=== PATIENT | female | born 1955 | race Caucasian/White ===

== ENCOUNTER → 2023-05-31 | Outpatient (CLI) | payer OTHER | END | disposition home or self-care (01) | LOC: SHCH 07:58 | PROVIDERS: ATTEND Internal Medicine Cardiovascular Disease | DX: I11.9 Hypertensive heart disease without heart failure (principal); R94.31 Abnormal electrocardiogram [ECG] [EKG]; R07.9 Chest pain, unspecified; R06.09 Other forms of dyspnea | CPT/HCPCS: 93306 ==

== ENCOUNTER → 2023-06-15 | Outpatient (CLI) | payer OTHER | END | disposition home or self-care (01) | LOC: SHCH 07:59 | PROVIDERS: ATTEND Internal Medicine Cardiovascular Disease | DX: I87.2 Venous insufficiency (chronic) (peripheral) (principal); I87.1 Compression of vein | CPT/HCPCS: 93970 ==

== ENCOUNTER → 2023-06-18 | Outpatient (CLI) | payer OTHER ==
[2023-06-18] MEDS: REGADENOSON 0.4 MG/5 ML PF SYG IVP ONE (11:21)
== END | disposition home or self-care (01) ==
LOC: SHCH 08:01
PROVIDERS: ATTEND Internal Medicine Cardiovascular Disease
DX: R94.31 Abnormal electrocardiogram [ECG] [EKG] (principal)
CPT/HCPCS: 78452; 96374; 93017; J2785; A9500 ×2

== ENCOUNTER 2024-01-03 17:06 | Emergency (ER) | payer OTHER ==
[~2024-01-03] VITALS: Ht 162.6 cm; Wt 93.0 kg
--- NOTE | 2024-01-03 17:38 | ERN ---
ED Note History of Present Illness Stated Complaint: LEFT INDEX FINGER LACERATION Chief Complaint: Finger Injury Time Seen by MD: 17:20 Time Seen by Midlevel: 17:20 Dictation: The patient is a 68-year-old. With a history of CKD [facility] of left index finger laceration is for 4x2 shelf fell on her finger onset 4:00 p.m.. Denies any other injuries. Possibly last tetanus vaccine 2017. Allergies: Coded Allergies: sulfamethoxazole (Unverified Allergy, Unknown, RASH, 01/03/24) trimethoprim (Unverified Allergy, Unknown, RASH, 01/03/24) Past Medical History Past Medical History: Kidney Infection Additional Past Medical Hx: CKD Surgical History: Other Surgical History Other: LT MASTECTOMY, RECONSTRUCTION RN Note Reviewed/Agreed w/PFSH: Yes Review of System Dictation Constitutional: Negative for fever,chills, and weight loss Eyes: Negative for injury, pain,redness, and discharge ENT: Negative for injury,pain or swelling Cardiovascular: Negative for chest pain, palpitations, and edema Respiratory: Negative for shortness of breath, cough, and wheezing, Abdomen/GI: Negative for abdominal pain, nausea, vomiting, diarrhea, and constipation Back: Negative for injury and pain : Negative for injury, bleeding and discharge MS/Extremity: Negative for injury and deformity Skin: Negative for rash, and discoloration positive laceration Neuro: Negative for headache, weakness, numbness, tingling, and seizure Psych: Negative for suicide ideation, homicidal ideation, and hallucinations Initial Vital Sign VS Vital Signs Date Time Temp Pulse Resp B/P (MAP) Pulse Ox O2 Delivery O2 Flow Rate FiO2 01/03/24 17:15 99.0 90 16 163/83 97 Room Air 0 Physical Exam Dictation Vital Signs reviewed General Appearance: Alert, oriented x 3, no acute distress, well developed, nourished. Head and Face: non-traumatic. Eyes: PERRL, pink conjunctivas, eyelid no trauma, anterior chamber with arcus senilis. Ears: Pinnas intact and no signs of trauma or erythema ear canals clear and no discharge TM no erythema Nose: No discharge, no bleeding. Oropharynx: Mouth normal, tongue pink. pharynx clear,no erythema, tonsils no exudates, no abscesses noted, mucous membrane moist Neck: Supple, non-tender, no thyromegaly, no masses, no JVD, no bruits Breast:Deferred Chest:No tenderness, no crepitus, no paradoxical movement, no retractions Lungs:Clear, well-ventilated, symmetric, no rales, no wheezing, no rhonchi, no stridor, good breath sounds bilaterally Heart: Regular rate, regular rhythm, no murmur, no gallops Vascular: no peripheral edema, Abdomen: Soft, positive bowel sounds, nondistended, no guarding, nontender, no rebound, no masses no hepatomegaly, no splenomegaly, no Roca's sign, no hernias. Rectal: Deferred Genital: Deferred Neurological: Normal speech, motor function intact, sensory function intact Musculoskeletal: Neck nontender, full range of motion, back nontender, full range of motion, Extremities: nontender, full range of motion Skin: Color pink, dry, no turgor, no rash, no abrasions, no contusions. laceration to left 1st anterior mid finger 2.5in, extensor tendon intact, cap refill less than 2 sec, full rom. Lymphatic: Deferred Results (Laboratory/Radiology) Laboratory/Radiology REASON: injury ORDERING PHYSICIAN: SAMMI MARTIN [employer] PROCEDURE: FINGER LT - FINGER(S) 2+VWS LT FINGER(S) 2+VWS LT REASON: injury TECHNIQUE: 2 views were obtained. FINDINGS: There is no evidence of fracture or dislocation. There is no joint effusion. The soft tissues appear unremarkable. There is no evidence of a radiopaque foreign body. IMPRESSION: No acute findings. Labs Reviewed?: Yes ED Course ED Course Orders Procedure Category Date Status Time Finger(S) 2+Vws Lt RAD 01/03/24 Resulted 17:34 Diph,Pertuss(Acell),Tet PHA 01/03/24 Complete Vac/Pf (Tdap) 18:00 Acetaminophen 500mg PHA 01/03/24 Complete Tab (Tylenol 500mg T 18:00 Lidocaine Hcl 1% 20ml PHA 01/03/24 In Process Vial (Lidocaine Hc 18:00 Neomy PHA 01/03/24 Complete Sulf/Bacitra/Polymyxin 18:00 Laceration Tray Set CPOE 01/03/24 Transmitted Up (Er) 18:47 Wound Care (Er) CPOE 01/03/24 Transmitted 18:47 Cefazolin Sodium PHA 01/03/24 Complete (Ancef) 19:57 Current Medications Medications (Trade) Dose Ordered Sig/Jaylin Route PRN Reason Start Time Stop Time Status Last Admin Dose Admin Acetaminophen (TYLenol 500MG TAB) 1,000 mg ONCE ONCE PO 01/03/24 18:00 01/03/24 18:01 DC Cefazolin Sodium (Ancef) 2 gm ONCE STAT IVPB 01/03/24 19:57 01/03/24 19:58 DC Diphtheria/ Tetanus/Acell Pertussis (Tdap) 0.5 ml ONCE ONCE IM 01/03/24 18:00 01/03/24 18:01 DC Lidocaine HCl (Lidocaine HCl 1% 20ml Vial) 10 ml ONCE INJ 01/03/24 18:00 02/02/24 17:59 Neomycin/ Polymyxin/ Bacitracin (Triple Antibiotic Ointment) 1 appl ONCE ONCE TP 01/03/24 18:00 01/03/24 18:01 DC Vital Signs Date Time Temp Pulse Resp B/P (MAP) Pulse Ox O2 Delivery O2 Flow Rate FiO2 01/03/24 17:15 99.0 90 16 163/83 97 Room Air 0 Medical Decision Making MDM The patient is a 68-year-old. With a history of CKD who presents to the emergency department with complaints of left index finger laceration is for 4x2 shelf fell on her finger onset 4:00 p.m.. Denies any other injuries. Possibly last tetanus vaccine 2017. Differential diagnosis: Cellulitis, laceration, open phalanges fracture, Xray showed no acute fractures, laceration repair done by Arash BELLE. Patient tolerated procedure well. Need for hospitalization: Patient does not meet criteria for hospitalization. There are no social concerns with this patient. Procedure Procedure Dictation: Time and Date Performed: 12/24/2023 INDICATION: laceration Location: left digit Informed consent was obtained. Pre-procedure time out was obtained. Anesthetic:1 % lidocaine Manual prep of skin and wound was done with hibisabella. Foreign Body: NO foreign bodies were identified. Length Repaired:2.5 in Suture used:5 ethylon # of simple sutures: 12 Aseptic technique was used during the entire procedure. Wound Location: upper extremity Wound's Depth, Shape: flap Wound Explored: clean Betadine Prep?: Yes Anesthesia: 1% Lidocaine Volume Anesthetic (ccs): 10 Wound Debrided: minimal Wound Repaired With: sutures Suture Size/Type: 5:0, nylon Number of Sutures: 12 DX & DISP Disposition: Discharge Departure Impression: Primary Impression: Laceration of left index finger Condition: Stable Scripts Cephalexin Monohydrate (Keflex) 500 Mg Cap 500 MG PO QID for 7 Days, #28 CAP Prov: SAMMI MARTIN GUME 01/03/24 Additional Instructions: Keep your stitches clean and dry. Do not put your stitches under water, such as in a bath, pool, or tejada. This can slow healing and raise your chance of getting an infection. Avoid activities or sports that could hurt the area of your stitches for 1-2 weeks. You should call your doctor if you develop any fever, redness or swelling around the cut, or pus draining from the cut. Your sutures will need to be removed in 10-14 days. FOLLOW-UP WITH PRIMARY CARE PROVIDER IN 1 TO 2 DAYS. TAKE MEDICATIONS DIRECTED HERE IN THE EMERGENCY ROOM. OKAY TO CONTINUE HOME MEDICATIONS UNLESS OTHERWISE DISCUSSED DURING YOUR VISIT IN THE EMERGENCY ROOM TODAY. RETURN TO YOUR NEAREST EMERGENCY ROOM IF SYMPTOMS WORSEN OR IF THERE IS NO IMPROVEMENT. CALL 911 IF YOU NEED IMMEDIATE ASSISTANCE. TAKE TYLENOL OR MOTRIN [id number] NEEDED AND IF NO CONTRAINDICATIONS ARE PRESENT. INCREASE ORAL HYDRATION. A WOUND CULTURE OR URINE CULTURE WAS ORDERED HERE IN THE EMERGENCY ROOM DEPARTMENT PLEASE FOLLOW-UP WITH PRIMARY CARE PROVIDER AND ADVISE THEM TO GET REPEAT PORTS FROM OUR FACILITY. IF YOU HAD ANY CHELSEA WRAP/SPLINTS THAT WERE APPLIED HERE, PLEASE DO NOT REMOVE THEM UNTIL YOU SEE YOUR PRIMARY CARE OR SPECIALTY. Referrals: TIFFANY LANCASTER MD (PCP) Time of Disposition: 20:37 I have reviewed the case, and I agree with, Diagnosis and Plan SAMMI MARTIN GUME Jan 03, 2024 17:38
[2024-01-03] MEDS: NEOMY SULF/BACITRA/POLYMYXIN B 1 EACH PACKET TP ONE (18:00)
--- NOTE | 2024-01-03 18:25 | HMCIMG ---
FINGER(S) 2+VWS LT REASON: injury TECHNIQUE: 2 views were obtained. FINDINGS: There is no evidence of fracture or dislocation. There is no joint effusion. The soft tissues appear unremarkable. There is no evidence of a radiopaque foreign body. IMPRESSION: No acute findings.
--- NOTE | 2024-01-03 20:06 | NUR ---
AT THIS TIME N.P. DOING A DIGITAL BLOCK.
[2024-01-03] MEDS ORDERED: CEPH500B PO (20:33)
[2024-01-03] MEDS: ceFAZolin SODIUM 2 GM VIAL IVPB STA (21:09)
[2024-01-03] MEDS: acetaMINOPHEN 500 MG TABLET PO ONE (21:09)
[2024-01-03] MEDS: DIPH,PERTUSS(ACELL),TET VAC/PF 0.5 ML VIAL IM ONE (21:10)
[2024-01-03] MEDS: LIDOCAINE HCL 1% 20 ML VIAL INJ SCH (21:11)
--- NOTE | 2024-01-03 21:28 | NUR ---
FINGER SPLINT PLACED TO LACERATION 2ND FINGER LEFT HAND, DRESSED WITH NONADHESIVE PAD AND GAUZE.
[2024-01-03 21:40] VITALS: BP 134/74; PULSE 78; RESP 18; TEMP 98.4; O2SAT 98
== END 2024-01-03 21:43 | disposition home or self-care (01) ==
LOC: EDH 17:06
DX: S61.211A Laceration without foreign body of left index finger without damage to nail, initial encounter (principal); N18.9 Chronic kidney disease, unspecified; Z88.1 Allergy status to other antibiotic agents; Z88.2 Allergy status to sulfonamides; W18.39XA Other fall on same level, initial encounter; Y93.89 Activity, other specified; Y92.89 Other specified places as the place of occurrence of the external cause; Y99.8 Other external cause status
CPT/HCPCS: 99284; 96365; 90715; 73140; 90471; 12002; J0690

== ENCOUNTER → 2024-06-20 | Outpatient (CLI) | payer OTHER ==
[~2024-06-20] MED LIST: CEPH500B PO
--- NOTE | 2024-06-20 10:33 | HMCIMG ---
UPPER GI SERIES History: Upper abdominal pain, unspecified; HEARTBURN Comparison: none Contrast: barium sulfate suspension, effervescent granules TECHNIQUE: EXAMINATION IS DONE UNDER FLUOROSCOPIC CONTROL, WITH FLUOROSCOPIC SPOTS OBTAINED. ALSO, OVERHEAD AP, LATERAL AND OBLIQUE VIEWS WERE OBTAINED. FINDINGS: Under fluoroscopic evaluation, the patient's esophagus demonstrates normal course, contour and caliber. Normal motility is seen. There is a small hiatal hernia. No reflux is seen. The stomach is unremarkable but there is irregularity of the duodenal bulb mucosa suggestive of peptic ulcer disease. There is no gastric outlet obstruction. There is no extravasation. There is no evidence of malrotation. IMPRESSION: Small hiatal hernia. Findings suggestive of peptic ulcer disease. Consider endoscopy for further evaluation.
== END | disposition home or self-care (01) ==
LOC: RAH 09:35
PROVIDERS: ATTEND Internal Medicine Gastroenterology
DX: K44.9 Diaphragmatic hernia without obstruction or gangrene (principal); R10.10 Upper abdominal pain, unspecified; R12 Heartburn
CPT/HCPCS: 74240

== ENCOUNTER 2025-02-03 15:57 | Emergency (ER) | payer OTHER ==
[~2025-02-03] VITALS: Ht 162.6 cm; Wt 97.5 kg
--- NOTE | 2025-02-03 16:30 | NUR ---
PATIENT IN ROOM
[2025-02-03 16:47] LABS: IMMATURE GRANULOCYTE ABSOLUTE 0.06 K/uL (0-1); NUCLEATED RED BLOOD CELLS 0.0 % (0.0-0.19); PLATELET COUNT (AUTO) 290 K/uL (130-400); RED BLOOD CELL COUNT(AUTO) 4.56 MIL/uL (4.00-5.50); RED CELL DISTRIBUTION WIDTH 14.5 % (11.0-15.5); WHITE BLOOD COUNT (AUTO) 13.1 K/uL (4.8-10.8)
[2025-02-03 16:53] LABS: CREATININE 1.6 mg/dL (0.5-1.0); GLOMERULAR FILTR. RATE CALC 35.0 mL/min (>90); GLUCOSE,RANDOM 123.0 mg/dL (70-105); SODIUM SERUM 139.0 mmol/L (136-145); UREA NITROGEN, BLOOD 21.0 mg/dL (7-18)
--- NOTE | 2025-02-03 16:54 | ERN ---
ED Note History of Present Illness Stated Complaint: ABDOMINAL PAIN Chief Complaint: Abdominal Pain Time Seen by MD: 16:03 Dictation: This is a 69-year-old morbidly obese female who presented to the emergency room via EMS with complaints of severe abdominal cramping today. She was on the toilet and her abdomen was cramping very severely and she felt hot and was about to pass out. So had some nausea and felt extremely sick but she did have the bowel movement. Asked if she was constipated she did not think so. No fever chills or rigors no diarrhea. Temperature 97.9 pulse 83 respirations 18 blood pressure 123/74 with a pulse oximetry of 98% on room air Other problems include diverticulosis, hypertension, breast CA status post mastectomy, ventral hernia Allergies: Coded Allergies: sulfamethoxazole (Unverified Allergy, Unknown, RASH, 01/03/24) trimethoprim (Unverified Allergy, Unknown, RASH, 01/03/24) Home Meds Active Scripts Dicyclomine HCl (Bentyl) 20 Mg Tab, 1 TAB PO TID for irritable bowel symptoms for 5 Days, #15 TAB 0 Refills Prov:PETER SANTOS MD 02/03/25 Cephalexin Monohydrate (Keflex) 500 Mg Cap, 500 MG PO QID for 7 Days, #28 CAP Prov:SAMMI MARTIN 01/03/24 Past Medical History Past Medical History: Diverticulosis, Hypertension Additional Past Medical Hx: CKD Surgical History: Hysterectomy, Other Surgical History Other: MASECTOMY Family History: Negative Social History: Negative History: Not Applicable RN Note Reviewed/Agreed w/PFSH: Yes Review of System Dictation Constitutional: Negative for fever,chills, and weight loss Eyes: Negative for injury, pain,redness, and discharge ENT: Negative for injury,pain or swelling Cardiovascular: Negative for chest pain, palpitations, and edema Respiratory: Negative for shortness of breath, cough, and wheezing, Abdomen/GI: Positive for abdominal pain, nausea, denied vomiting, diarrhea, and constipation Back: Negative for injury and pain : Negative for injury, bleeding and discharge MS/Extremity: Negative for injury and deformity Skin: Negative for rash, and discoloration Neuro: Negative for headache, weakness, numbness, tingling, and seizure Psych: Negative for suicide ideation, homicidal ideation, and hallucinations Initial Vital Sign VS Vital Signs Date Time Temp Pulse Resp B/P (MAP) Pulse Ox O2 Delivery O2 Flow Rate FiO2 02/03/25 16:13 97.9 83 18 123/74 98 Room Air 0 02/03/25 16:30 21 Physical Exam Dictation General: awake, alert, NAD morbidly obese Head/Face: Normocephalic, atraumatic Eyes: PERRL, EOMI, vision at baseline ENT: oral cavity clear, TMs clear, no signs of infection Neck: Trachea midline, supple, no nuchal rigidity Cardiovascular: RRR, normal S1/S2, No MRGs, no JVD Respiratory: CTAB, no respiratory distress, No rales or wheezes Abdomen: Soft, non-tender, mildly-distended, normal bowel sounds, no guarding or rebound. Skin: Warm, dry, normal turgor, no rash MS/Extremity: Pulses equal, no cyanosis, neurovascular intact, FROM Neuro: COAx4, GCS 15, strength 5/5, CN 2-12 intact, normal cerebellar exam, normal gait, Psych: Normal behavior, mood, and affect normal Extremities-trace edema without any palpable cords, Homans sign is negative Results (Laboratory/Radiology) Laboratory/Radiology Laboratory Tests Test 02/03/25 16:39 02/03/25 17:50 White Blood Count 13.1 K/uL (4.8-10.8) H Red Blood Count 4.56 MIL/uL (4.00-5.50) Hemoglobin 13.0 g/dL (12.0-16.0) Hematocrit 40.7 % (36-48) Mean Corpuscular Volume 89.3 fL (79-99) Mean Corpuscular Hemoglobin 28.5 pg (27.0-33.0) Mean Corpuscular Hemoglobin Concent 31.9 g/dL (32.0-36.0) L Red Cell Distribution Width 14.5 % (11.0-15.5) Platelet Count 290 K/uL (130-400) Mean Platelet Volume 10.3 fL (7.5-10.5) Immature Granulocyte % (Auto) 0.5 % (0-1) Neutrophils (%) (Auto) 81.6 % (40.0-77.0) H Lymphocytes (%) (Auto) 12.6 % (21.0-51.0) L Monocytes (%) (Auto) 4.5 % (3.0-13.0) Eosinophils (%) (Auto) 0.5 % (0.0-8.0) Basophils (%) (Auto) 0.3 % (0.0-5.0) Neutrophils # (Auto) 10.6 K/uL (1.8-7.7) H Lymphocytes # (Auto) 1.7 K/uL (1.0-4.8) Monocytes # (Auto) 0.6 K/uL (0.1-1.0) Eosinophils # (Auto) 0.07 K/uL (0.00-0.70) Basophils # (Auto) 0.04 K/uL (0.00-0.20) Absolute Immature Granulocyte (auto 0.06 K/uL (0-1) Nucleated Red Blood Cells 0.0 % (0.0-0.19) Sodium Level 139 mmol/L (136-145) Potassium Level 4.2 mmol/L (3.5-5.1) Chloride Level 106 mmol/L (101-111) Carbon Dioxide Level 29 mmol/L (21-32) Blood Urea Nitrogen 21 mg/dL (7-18) H Creatinine 1.6 mg/dL (0.5-1.0) H Glomerular Filtration Rate Calc 35 mL/min (>90) Random Glucose 123 mg/dL (70-105) H Total Calcium 8.7 mg/dL (8.5-10.1) Lipase 43 U/L (16-77) Urine Color YELLOW (YELLOW) Urine Appearance CLEAR (CLEAR) Urine pH 5.5 (5.0-8.0) Urine Specific [place] 1.016 (1.001-1.031) Urine Protein 20 mg/dL (NEGATIVE) H Urine Glucose (UA) NEGATIVE mg/dL (NEGATIVE) Urine Ketones NEGATIVE mg/dL (NEGATIVE) Urine Occult Blood NEGATIVE (NEGATIVE) Urine Nitrate NEGATIVE (NEGATIVE) Urine Bilirubin NEGATIVE mg/dL (NEGATIVE) Urine Urobilinogen 0.2 mg/dL (0.2-1.0) Urine Leukocyte Esterase NEGATIVE [place]/uL Urine RBC 0-1 /HPF (0-1) Urine WBC 0-1 /HPF (0-1) Urine Squamous Epithelial Cells FEW /HPF (0-2) Urine Bacteria None /HPF (None Seen) Labs Reviewed?: Yes CT Scan Comment: REASON: Crampy abdominal pain, diverticulosis ORDERING PHYSICIAN: PETER SANTOS MD PROCEDURE: ABD PEL WO - CT ABDOMEN/PELVIS W/O CONTRAST EXAM: CT Abdomen and Pelvis Without IV contrast CLINICAL HISTORY: Patient presents with crampy abdominal pain and diverticulosis. TECHNIQUE: Axial computed tomography images of the abdomen and pelvis without intravenous contrast. CONTRAST: No IV contrast. COMPARISON: None provided. FINDINGS: LUNG BASES: The lung bases appear clear. No pleural effusions are seen. LIVER: Unremarkable. GALLBLADDER AND BILE DUCTS: The gallbladder appears within normal limits. No radioopaque gallstones are seen. No biliary ductal dilatation is evident. PANCREAS: Unremarkable. SPLEEN: Unremarkable. ADRENAL GLANDS: Unremarkable. KIDNEYS, URETERS, AND BLADDER: The kidneys appear within normal limits. There is no hydronephrosis or hydroureter. No urinary calculi are seen. Bilateral minimal non-specific perinephric fat stranding is present. The urinary bladder is incompletely distended at the time of examination, limiting the evaluation for possible wall thickening. In the appropriate clinical setting, mild cystitis cannot be excluded. Recommended clinical correlation. STOMACH AND BOWEL: Sigmoid colon diverticulosis is present without diverticulitis. Unremarkable appearance of the stomach and bowel otherwise. No evidence of bowel obstruction. No evidence suggesting enteritis or colitis. APPENDIX: No evidence of acute appendicitis on CT examination. PERITONEUM: No free fluid. No free air. LYMPH NODES: No lymphadenopathy is evident. REPRODUCTIVE: The uterus is surgically absent. Unremarkable as visualized otherwise. VASCULATURE: No evidence of abdominal aortic aneurysm. BONES: Multilevel mild degenerative changes are present in the spine. No aggressive appearing osseous lesion. No acute osseous pathology evident. IMPRESSION: Sigmoid colon diverticulosis without evidence of diverticulitis. Bilateral minimal non-specific perinephric fat stranding. Incompletely distended urinary bladder limits evaluation for wall thickening; mild cystitis cannot be excluded in the appropriate clinical setting, with clinical correlation recommended. Surgical absence of the uterus. Multilevel mild degenerative changes in the spine. No acute intra-abdominal or pelvic abnormality otherwise. /[place] DICTATED BY: MINA HERNANDEZ Jr., MD DATE: 02/03/251927 ELECTRONICALLY SIGNED BY: IMNA HERNANDEZ Jr., MD DATE: 12/20/25 1928 ED Course ED Course Orders Procedure Category Date Status Time Cbc With Differential LAB 02/03/25 Complete 16:23 Basic Metabolic Panel LAB 02/03/25 Complete 16:23 Urinalysis Profile LAB 02/03/25 Complete 16:23 Lipase LAB 02/03/25 Complete 16:23 Ct Abdomen/Pelvis W/O CT 02/03/25 Resulted Contrast 16:55 Ketorolac PHA 02/03/25 Complete Tromethamine 30mg/Ml 18:30 Dicyclomine Hcl PHA 02/03/25 Complete (Bentyl 20mg Inj) 18:30 Current Medications Medications (Trade) Dose Ordered Sig/Jaylin Route PRN Reason Start Time Stop Time Status Last Admin Dose Admin Dicyclomine HCl (Bentyl 20mg Inj) 10 mg ONCE ONCE IM 02/03/25 18:30 02/03/25 18:31 DC Ketorolac Tromethamine (toRADol) 30 mg ONCE ONCE IVP 02/03/25 18:30 02/03/25 18:31 DC Vital Signs Date Time Temp Pulse Resp B/P (MAP) Pulse Ox O2 Delivery O2 Flow Rate FiO2 02/03/25 16:30 97.9 83 18 123/74 98 Room Air* 0 21 02/03/25 16:13 97.9 83 18 123/74 98 Room Air 0 Medical Decision Making MDM Differential diagnosis-Renal colic, biliary colic Gastritis, esophagitis, gastroesophageal reflux disease, acute cholecystitis, peptic ulcer disease, gastroenteritis, colitis, constipation, pancreatitis, diverticulitis This is a 69-year-old morbidly obese female who presented to the emergency room via EMS with complaints of severe abdominal cramping today. She was on the toilet and her abdomen was cramping very severely and she felt hot and was about to pass out. So had some nausea and felt extremely sick but she did have the bowel movement. Asked if she was constipated she did not think so. No fever chills or rigors no diarrhea. Temperature 97.9 pulse 83 respirations 18 blood pressure 123/74 with a pulse oximetry of 98% on room air Other problems include diverticulosis, hypertension, breast CA status post ma stectomy, ventral hernia 4:50 p.m. CBC showed a white count of 13.1 hemoglobin 13 platelets 290. BNP [address] scan of the abdomen and pelvis Six hundred thirty still waiting for the CT scan results I updated the patient and we will give a trial of Bentyl and an NSAID monitor her response until the results are back. If negative we will discharge to home Rationale: Tests considered and ordered secondary to shared decision making include: Labs and CT scan of the abdomen Previous outside records reviewed: Old ER visits. Risk of complication and/or morbidity or mortality of patient management: None Medications-Per medication reconciliation Need for hospitalization: Patient does not meet criteria for hospitalization. Need for emergency major/minor surgery: No There are no social concerns with this patient. Prescription drug management Prescriptions will include symptomatic care Patient's prior external medical records from other ER visits were reviewed by me as indicated. Prior testing and results from previous visits were reviewed. Prior tests were taken into account with medical decision making and resource utilization, independent historian/historians were used to obtain complete medical history. I independently interpreted the test that were performed, results were reviewed by me and considered findings on radiology if ordered. Medical management and examination interpretation discussions were had by me with other qualified healthcare professionals as indicated for the patient's care. Problem List Problem List: (1) Abdominal pain, crampy (2) Vasovagal symptom (3) Diverticulosis DX & DISP Disposition: Discharge Departure Impression: Primary Impression: Abdominal pain, crampy Additional Impressions: Vasovagal symptom, Diverticulosis Condition: Stable Scripts Dicyclomine HCl (Bentyl) 20 Mg Tab 1 TAB PO TID for irritable bowel symptoms for 5 Days, #15 TAB 0 Refills Prov: PETER SANTOS MD 02/03/25 Additional Instructions: Patient and the caregiver have been informed of all the diagnostic tests and the imaging conducted during the today's visit to the emergency room and has verbalized understanding of the results I have personally reviewed and interpreted all diagnostic exams performed here in the ER today as well as the vital signs documented by the nursing staff. The patient is now being discharged to home and should follow up with the primary care physician or the specialist as directed by the ER staff. Referrals: TIFFANY LANCASTER MD (PCP) PETER SANTOS MD Feb 03, 2025 16:54
[2025-02-03 17:58] LABS: APPEARANCE,URINE CLEAR (CLEAR); GLUCOSE, URINE (UA) NEGATIVE (NEGATIVE); LEUKOCYTE ESTERASE ,URINE NEGATIVE Leu/uL (NEGATIVE); NITRATE,URINE NEGATIVE (NEGATIVE); OCCULT BLOOD,URINE NEGATIVE (NEGATIVE)
[2025-02-03 17:59] LABS: ADD UA MICROSCOPIC YES
[2025-02-03 18:00] LABS: SQUAMOUS EPITHELIAL CELL,UR FEW /HPF (0-2)
[2025-02-03] MEDS ORDERED: DICY20TA2 PO (18:25)
--- NOTE | 2025-02-03 18:28 | HMCIMG ---
EXAM: CT Abdomen and Pelvis Without IV contrast CLINICAL HISTORY: Patient presents with crampy abdominal pain and diverticulosis. TECHNIQUE: Axial computed tomography images of the abdomen and pelvis without intravenous contrast. CONTRAST: No IV contrast. COMPARISON: None provided. FINDINGS: LUNG BASES: The lung bases appear clear. No pleural effusions are seen. LIVER: Unremarkable. GALLBLADDER AND BILE DUCTS: The gallbladder appears within normal limits. No radioopaque gallstones are seen. No biliary ductal dilatation is evident. PANCREAS: Unremarkable. SPLEEN: Unremarkable. ADRENAL GLANDS: Unremarkable. KIDNEYS, URETERS, AND BLADDER: The kidneys appear within normal limits. There is no hydronephrosis or hydroureter. No urinary calculi are seen. Bilateral minimal non-specific perinephric fat stranding is present. The urinary bladder is incompletely distended at the time of examination, limiting the evaluation for possible wall thickening. In the appropriate clinical setting, mild cystitis cannot be excluded. Recommended clinical correlation. STOMACH AND BOWEL: Sigmoid colon diverticulosis is present without diverticulitis. Unremarkable appearance of the stomach and bowel otherwise. No evidence of bowel obstruction. No evidence suggesting enteritis or colitis. APPENDIX: No evidence of acute appendicitis on CT examination. PERITONEUM: No free fluid. No free air. LYMPH NODES: No lymphadenopathy is evident. REPRODUCTIVE: The uterus is surgically absent. Unremarkable as visualized otherwise. VASCULATURE: No evidence of abdominal aortic aneurysm. BONES: Multilevel mild degenerative changes are present in the spine. No aggressive appearing osseous lesion. No acute osseous pathology evident. IMPRESSION: Sigmoid colon diverticulosis without evidence of diverticulitis. Bilateral minimal non-specific perinephric fat stranding. Incompletely distended urinary bladder limits evaluation for wall thickening; mild cystitis cannot be excluded in the appropriate clinical setting, with clinical correlation recommended. Surgical absence of the uterus. Multilevel mild degenerative changes in the spine. No acute intra-abdominal or pelvic abnormality otherwise. /[place]
[2025-02-03] MEDS: DICYCLOMINE 20MG (10MG/ML) AMP IM ONE (19:22)
[2025-02-03 19:40] VITALS: BP 126/80; PULSE 83; RESP 13; TEMP 97.9; O2SAT 98
== END 2025-02-03 19:38 | disposition home or self-care (01) ==
LOC: EDH 15:57
DX: K57.30 Diverticulosis of large intestine without perforation or abscess without bleeding (principal); R10.9 Unspecified abdominal pain; R55 Syncope and collapse; I12.9 Hypertensive chronic kidney disease with stage 1 through stage 4 chronic kidney disease, or unspecified chronic kidney disease; N18.9 Chronic kidney disease, unspecified; Z88.1 Allergy status to other antibiotic agents; Z88.2 Allergy status to sulfonamides; Z90.710 Acquired absence of both cervix and uterus
CPT/HCPCS: 99284; 74176; 80048; 83690; 85025; 81001; 36415; 96372 ×2; J1885; J0500